=== PATIENT | female | born 2005 | race African-American/Black ===

== ENCOUNTER 2025-06-22 15:25 | Emergency (ER) | payer BC, MEDICAID ==
[~2025-06-22] VITALS: Ht 165.1 cm; Wt 75.0 kg
[2025-06-22 15:33] VITALS: O2SAT 98
[2025-06-22 15:36] VITALS: BP 99/57; PULSE 69; RESP 18; TEMP 37; O2SAT 99
== END 2025-06-22 17:30 | disposition left against medical advice (07) ==
LOC: ER 15:25
DX: S61.012A Laceration without foreign body of left thumb without damage to nail, initial encounter (principal); W26.0XXA Contact with knife, initial encounter; Y93.89 Activity, other specified; Y92.89 Other specified places as the place of occurrence of the external cause; Y99.8 Other external cause status
CPT/HCPCS: 99281